=== PATIENT | male | born 1985 | race Caucasian/White ===

== ENCOUNTER 2016-07-28 09:52 | Inpatient (IN) | payer BC ==
[2016-07-28] MEDS ORDERED: Ondansetron INJ* 2 MG/ML VIAL IV ONE (10:32)
[2016-07-28] MEDS ORDERED: Dexamethasone IV* 4 MG/ML 5 ML VIAL (20 MG) IVPB ONE (10:32)
[2016-07-28] MEDS ORDERED: Morphine INJ* 4 MG/ML 1 ML CARPUJECT IV ONE (10:32)
[2016-07-28] MEDS ORDERED: NS 0.9% 1000 ML* 1,000 ML IV ONE ×2 (10:33→14:48)
[2016-07-28] MEDS ORDERED: Ketorolac INJ* 30 MG/ML 1 ML VIAL IV PUSH ONE (10:33)
[2016-07-28] MEDS ORDERED: HYDROmorphone INJ* 1 MG/ML CARPUJECT SYRINGE IV SLOW PU ONE (12:20)
--- NOTE | 2016-07-28 12:20 | ED ---
Back Pain - HPI Summary HPI Summary: Pt here w/ acute back pain. Was splitting wood the other day and noticed his back hurt after striking a piece of frozen wood. He stopped and developed progressive pain and stiffness. Tried percocet and tizanadine he had leftover w/ o relief. Took him a long time to get up to get in here today - has debilitating spasms w/ pain shooting down into Rt buttock and behind knee. Denies numbness, tingling, weakness and no change in bowel/bladder habits. Had an MRI at last visit here in 05/2016 - Rt L5-S1 disc herniation abutting L5 nerve root - History of Current Complaint Chief Complaint: EDBackInjuryPain Stated Complaint: BACK PAIN Time Seen by Provider: 07/28/16 10:27 Hx Obtained From: Patient, Family/Travel Coordinator - female partner Pain Intensity: 10 - Allergies/Home Medications Allergies/Adverse Reactions: Allergies Allergy/AdvReac Type Severity Reaction Status Date / Time Amoxicillin Allergy Diarrhea Verified 05/28/16 11:13 Penicillins [PCN] Allergy Diarrhea Verified 05/28/16 11:13 PMH/Surg Hx/FS Hx/Imm Hx Previously Healthy: Yes Endocrine/Hematology History: Denies: Hx Anticoagulant Therapy, Hx Blood Disorders Cardiovascular History: Denies: Hx Pacemaker/ICD Musculoskeletal History: Reports: Other Musculoskeletal History - 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 Sensory History: Denies: Hx Hearing Aid Psychiatric History: Denies: Hx Panic Disorder - Surgical History Surgery Procedure, Year, and Place: EUA KNEE, left Infectious Disease History: No Infectious Disease History: Denies: Hx Clostridium Difficile, Hx Hepatitis, Hx Human Immunodeficiency Virus (HIV), Hx of Known/Suspected MRSA, Hx Shingles, Hx Tuberculosis, Hx Known/ Suspected VRE, Hx Known/Suspected VRSA, History Other Infectious Disease, Traveled Outside the [place] in Last 30 Days - Family History Known Family History: Positive: Hypertension Negative: Respiratory Disease, Blood Disorder - Social History Occupation: Employed Full-time Lives: With Family Alcohol Use: Rare Hx Substance Use: No Substance Use Type: Reports: None Hx Tobacco Use: No Smoking Status (MU): Never Smoked Tobacco Review of Systems Negative: Fatigue Negative: Chest Pain Negative: Shortness Of Breath Negative: Abdominal Pain, Vomiting, Diarrhea, Nausea Negative: incontinence, urgency Musculoskeletal: Other - SEE HPI Negative: Rash, Bruising Neurological: Other - SEE HPI Negative: Weakness, Paresthesia, Numbness Psychological: Normal All Other Systems Reviewed And Are Negative: Yes Physical Exam Triage Information Reviewed: Yes Vital Signs On Initial Exam: Initial Vitals Temp Pulse Resp BP Pulse Ox 98.6 F 70 16 121/74 99 07/28/16 10:01 07/28/16 10:01 07/28/16 10:01 07/28/16 10:01 07/28/16 10:01 Vital Signs Reviewed: Yes Appearance: Positive: Well-Appearing, Well-Nourished, Pain Distress Skin: Positive: Warm, Dry - No erythema, no ecchymosis over affected area Head/Face: Positive: Normal Head/Face Inspection Eyes: Positive: Normal, EOMI, Conjunctiva Clear ENT: Positive: Hearing grossly normal, Pharynx normal - mucosa somewhat dry Respiratory/Lung Sounds: Positive: Breath Sounds Present Cardiovascular: Positive: Normal, RRR, Pulses are Symmetrical in both Upper and Lower Extremities Abdomen Description: Positive: Nontender, Soft Musculoskeletal: Positive: Other - Rt side - moving toes, ankles and knee - pain w/ moving hip Neurological: Positive: Sensory/Motor Intact - sensory and motor intact but has pain w/ RLE movement Psychiatric: Positive: Normal - [place] Coma Scale Coma Scale Total: 15 Diagnostics - Vital Signs Vital Signs Temp Pulse Resp BP Pulse Ox 07/28/16 12:00 73 122/66 97 07/28/16 11:30 71 120/69 98 07/28/16 11:00 90 112/52 99 07/28/16 10:48 16 07/28/16 10:30 69 123/72 99 07/28/16 10:04 75 98 07/28/16 10:02 121/74 07/28/16 10:01 98.6 F 70 16 121/74 99 - Laboratory Result Diagrams: 07/28/16 10:15 07/28/16 10:15 Lab Statement: Any lab studies that have been ordered have been reviewed, and results considered in the medical decision making process. Re-Evaluation - Re-Evaluation First Eval Change: Unchanged - s/p toradol, dexamethasone, morphine Second Eval Change: Improved - briefly s/p dilaudid IV - provided IV diazepam Back Pain Course/Dx - Course Course Of Treatment: Pt admitted for intractable pain as he failed toradol, morphine, steroid and dilaudid - no repeat MRI ordered as pt does not have neurological deficit - simply pain. Spoke w/ Dr. Sharp. - Diagnoses Provider Diagnoses: Herniated nucleus pulposus, L5-S1, right - Provider Notifications Discussed Care of Patient With: Dr. Sharp Discharge - Discharge Plan Condition: Fair Disposition: ADMITTED TO [facility] [place]
[2016-07-28 13:40] LABS: Hematocrit 43 % (42-52); Hemoglobin 14.1 g/dl (14.0-18.0); Mean Corpuscular HGB Conc 33 g/dl (31-36); Mean Corpuscular Hemoglobin 30 pg (27-31); Mean Corpuscular Volume 91 fL (80-94); Mean Platelet Volume 9 um3 (7.4-10.4); Red Cell Distribution Width 14 % (10.5-15); White Blood Count 8.2 10^3/ul (3.5-10.8)
[2016-07-28 13:51] LABS: Albumin 4.4 g/dL (3.2-5.2); BUN/Creatinine Ratio 8.6 (8-20); Calcium 9.1 mg/dL (8.6-10.3); EGFR African American 143.9 (>60); EGFR Non-African American 111.9 (>60); Globulin 3.1 g/dL (2-4); Potassium 3.7 mmol/L (3.5-5.0); Total Bilirubin 0.6 mg/dL (0.2-1.0); Total Protein 7.5 g/dL (6.4-8.9)
[2016-07-28] MEDS ORDERED: Diazepam SYRINGE* 5 MG/ML 2 ML SYRINGE (10 MG total) IV ONE (14:30)
[2016-07-28] MEDS ORDERED: Ondansetron INJ* 2 MG/ML VIAL IV PRN (14:48)
[2016-07-28] MEDS ORDERED: Ketorolac INJ* 30 MG/ML 1 ML VIAL IV PUSH PRN (14:53)
[2016-07-28] MEDS ORDERED: Diazepam TAB(*) 5 MG PO PRN (14:53)
[2016-07-28] MEDS: HYDROmorphone INJ* 2 MG/ML CARPUJECT SYRINGE IV SLOW PU PRN ×2 (15:54→20:15)
[2016-07-28] MEDS: oxyCODONE/Acetamin 5/325 MG* TAB PO PRN (17:29)
[2016-07-28] MEDS ORDERED: Diazepam SYRINGE* 5 MG/ML 2 ML SYRINGE (10 MG total) IV PRN (18:16)
[2016-07-28] MEDS: Dexamethasone TAB* 4 MG PO SCH (21:47)
[2016-07-29] MEDS: oxyCODONE/Acetamin 5/325 MG* TAB PO PRN ×5 (03:45→23:28)
[2016-07-29] MEDS: NS 0.9% 1000 ML* 1,000 ML IV SCH ×2 (03:45→14:14)
[2016-07-29] MEDS: Dexamethasone TAB* 4 MG PO SCH ×2 (08:59→20:44)
[2016-07-29] MEDS: HYDROmorphone INJ* 2 MG/ML CARPUJECT SYRINGE IV SLOW PU PRN ×3 (09:06→20:47)
[2016-07-29] MEDS ORDERED: Omeprazole CAP* 20 MG PO ONE (21:31)
--- NOTE | 2016-07-29 21:31 | PN ---
Subjective Date of Service: 07/29/16 Interval History: . still can't walk secondary to pain. getting IV pain meds and antispasmotics. also on steroids add PPI. stool softener. likely dc tomorrow. Family History: Unchanged from Admission Social History: Unchanged from Admission Past Medical History: Unchanged from Admission Objective Active Medications: . Dexamethasone (Decadron Tab*) 4 mg PO BID [facility] Last Admin: 07/29/16 20:44 Dose: 4 mg Diazepam (Valium Syringe*) 5 mg IV Q6H PRN PRN Reason: back pain / spasm Hydromorphone HCl (Dilaudid Iv*) 2 mg IV SLOW PU Q4H PRN PRN Reason: SEVERE PAIN Last Admin: 07/29/16 20:47 Dose: 2 mg Sodium Chloride (Ns 0.9% 1000 Ml*) 1,000 mls @ 100 mls/hr IV PER RATE [facility] Last Admin: 07/29/16 14:14 Dose: 100 mls/hr Ketorolac Tromethamine (Toradol Inj*) 30 mg IV PUSH Q6H PRN PRN Reason: PAIN Last Admin: 07/28/16 17:29 Dose: 30 mg Ondansetron HCl (Zofran Inj*) 4 mg IV Q4H PRN PRN Reason: NAUSEA/VOMITING Oxycodone/Acetaminophen (Percocet 5/325 Tab*) 2 tab PO Q4H PRN PRN Reason: Pain Last Admin: 07/29/16 18:29 Dose: 2 tab . Vital Signs 07/29/16 07/29/16 07/29/16 15:19 16:01 16:43 Temperature 98.6 F Pulse Rate 83 Respiratory 18 16 18 Rate Blood Pressure 141/69 (mmHg) O2 Sat by Pulse 98 Oximetry 07/29/16 07/29/16 07/29/16 17:43 18:29 19:52 Temperature 98.1 F Pulse Rate 89 Respiratory 18 18 16 Rate Blood Pressure 116/60 (mmHg) O2 Sat by Pulse 97 Oximetry Appearance: ok so long as he is lying still - pain/grimacing with movement. Ears/Nose/Mouth/Throat: NL Teeth, Lips, Gums Neck: NL Appearance and Movements; NL JVP Respiratory: Symmetrical Chest Expansion and Respiratory Effort Cardiovascular: NL Sounds; No Murmurs; No JVD Abdominal: NL Sounds; No Tenderness; No Distention Lymphatic: No Cervical Adenopathy Extremities: No Edema Skin: No Rash or Ulcers Neurological: Alert and Oriented x 3 Lines/Tubes/Other Access: Clean, Dry and Intact Peripheral IV Nutrition: Taking PO's Result Diagrams: 07/28/16 10:15 07/28/16 10:15 Assess/Plan/Problems-Billing . Assessment: 31 yo man with herniated nucleus pulposis - slowly recovering but still unable to ambulate. iV opiates - pain IV benzos - spasm PO steroids - anti-inflammation Add PPI/bowel regimen PT eval Recent MRI noted - no danger signs (i.e. bowel/bladder dysfx, focal weakness , etc.)
[2016-07-29] MEDS ORDERED: Senna TAB PO SCH (22:00)
[2016-07-30] MEDS: NS 0.9% 1000 ML* 1,000 ML IV SCH (00:11)
--- NOTE | 2016-07-30 01:44 | HP ---
CC: Rakesh Subramanian MD HISTORY AND PHYSICAL: DATE OF ADMISSION: 07/29/16 PRIMARY CARE PROVIDER: [facility]. CHIEF COMPLAINT: Back pain/inability to walk secondary to acute pain. HISTORY OF PRESENT ILLNESS: Mr. Montemayor is a 31-year-old generally healthy man who was splitting wood the other day and noticed his back hurt after striking a piece of frozen wood. The patient experienced progressive pain and stiffness. The patient tried Percocet and tizanidine that he had from a recent injury. The patient could not walk at one point and slowly made his way to the hospital. He has debilitated spasms with pain shooting down his right buttock and behind his knee. There is numbness and tingling and weakness but no change in bowel or bladder habits. The patient had an MRI at the last visit here in May, which showed a right L5-S1 disk herniation abutting the L5 nerve root. The patient was treated with acute steroids and opioids and there was some subjective relief but the patient was still not able to walk. The patient has no other significant past medical history and is being admitted for IV pain control, IV antispasmodic therapy, as well as steroid antiinflammation therapy. PAST MEDICAL HISTORY: Previous back pain as described above. MEDICATIONS: No outpatient medications prescribed. ALLERGIES: AMOXICILLIN/PENICILLIN - unknown reaction - patient states it might just be diarrhea. FAMILY HISTORY: Reviewed but noncontributory based on this presentation. 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 He is a nonsmoker. He drinks occasionally. REVIEW OF SYSTEMS: A review of 14 systems was accomplished at the bedside. This was largely negative except for the pertinent positives mentioned above in the HPI and past medical history. All other positives are mentioned in the HPI. PHYSICAL EXAMINATION GENERAL: The patient is a young man who appears his stated age in no apparent distress. Awake, alert, and oriented x3 and answering questions appropriately. If he moves; however, he is very uncomfortable, grimacing and in obvious severe pain. He is bedbound at this point. VITAL SIGNS: On admission, temperature 98.1 degrees Fahrenheit, pulse 75, respirations 16 and regular, blood pressure one teens over 60's, oxygen saturation is high 90's in room air. HEENT: Oropharynx is clear. Mucous membranes are moist. No posterior pharyngeal erythema or exudate. NECK: Supple. No elevated JVD. Midline trachea. There is no carotid bruits. CHEST: Clear anteriorly, posteriorly. No focal rales, rhonchi or wheezing. HEART: Regular rate and rhythm. No murmurs, rubs or gallops. ABDOMEN: Soft and nontender. No organomegaly. NEUROLOGIC: No focal symptomatology. He has pain in his lower lumbar region. There is obvious muscle spasms active during my exam. He has alteration in his posture secondary to muscle spasm. Straight leg lift is positive at 30 degrees for pain down his right leg. PSYCH: Normal affect. No acute anxiety or depression. No lymphadenopathy appreciated. SKIN: Dry and intact. No rashes, lesions, breakdown. ADMISSION DATA: Includes generally normal blood chemistries and hematology studies. His radiology review included the lumbar spine MRI that was done on , which showed the L5-S1 bulging disk abutting the L5 nerve root. The patient's current presentation and pain are consistent with this. IMPRESSION: Mr. Montemayor is a 31-year-old gentleman with an acute low back injury likely secondary to his already-characterized disk disease and herniated nucleus pulposus. The patient is going to be treated aggressively with IV opioids, IV benzodiazepines and oral steroids for pain, spasm, and antiinflammation effects. Add proton pump inhibitor and bowel regimen for prophylaxis. Full code. DVT prophylaxis is SCDs and early ambulation. PT evaluation. TIME SPENT: Total time taken to admit Mr. Montemayor was 75 minutes. Greater than half that time was spent going over the detailed history and physical examination as above. [id number]/[facility] #: [id number] [facility]
[2016-07-30] MEDS: oxyCODONE/Acetamin 5/325 MG* TAB PO PRN ×2 (05:48→10:14)
[2016-07-30] MEDS ORDERED: Omeprazole CAP* 20 MG PO SCH (06:00)
[2016-07-30 07:22] VITALS: BP 113/73
[2016-07-30] MEDS: Dexamethasone TAB* 4 MG PO SCH (08:25)
--- NOTE | 2016-07-30 09:11 | PN ---
Subjective Date of Service: 07/30/16 Interval History: Pt is feeling better slowly. He states he was able to be up an ambulate a little this AM. He thinks the steroids have helped the most. He thinks he will be able to manage at home. Objective Active Medications: Dexamethasone (Decadron Tab*) 4 mg PO BID [facility] Last Admin: 07/30/16 08:25 Dose: 4 mg Diazepam (Valium Syringe*) 5 mg IV Q6H PRN PRN Reason: back pain / spasm Last Admin: 07/30/16 08:32 Dose: 5 mg Hydromorphone HCl (Dilaudid Iv*) 2 mg IV SLOW PU Q4H PRN PRN Reason: SEVERE PAIN Last Admin: 07/29/16 20:47 Dose: 2 mg Sodium Chloride (Ns 0.9% 1000 Ml*) 1,000 mls @ 100 mls/hr IV PER RATE [facility] Last Admin: 07/30/16 00:11 Dose: 100 mls/hr Ketorolac Tromethamine (Toradol Inj*) 30 mg IV PUSH Q6H PRN PRN Reason: PAIN Last Admin: 07/28/16 17:29 Dose: 30 mg Omeprazole (Prilosec Cap*) 20 mg PO DAILY@0600 [facility] Last Admin: 07/30/16 05:48 Dose: 20 mg Ondansetron HCl (Zofran Inj*) 4 mg IV Q4H PRN PRN Reason: NAUSEA/VOMITING Oxycodone/Acetaminophen (Percocet 5/325 Tab*) 2 tab PO Q4H PRN PRN Reason: Pain Last Admin: 07/30/16 05:48 Dose: 2 tab Senna (Senokot Tab*) 1 tab PO BEDTIME [facility] Last Admin: 07/29/16 21:59 Dose: 1 tab Vital Signs 07/29/16 07/29/16 07/29/16 15:19 16:01 16:43 Temperature 98.6 F Pulse Rate 83 Respiratory 18 16 18 Rate Blood Pressure 141/69 (mmHg) O2 Sat by Pulse 98 Oximetry 07/29/16 07/29/16 07/29/16 17:43 18:29 19:52 Temperature 98.1 F Pulse Rate 89 Respiratory 18 18 16 Rate Blood Pressure 116/60 (mmHg) O2 Sat by Pulse 97 Oximetry 07/29/16 07/29/1607/29/17 20:00 20:29 20:47 Temperature Pulse Rate Respiratory 17 16 16 Rate Blood Pressure (mmHg) O2 Sat by Pulse Oximetry 07/29/16 07/29/16 07/29/16 21:47 23:22 23:28 Temperature 100.2 F Pulse Rate 75 Respiratory 16 20 16 Rate Blood Pressure 115/53 (mmHg) O2 Sat by Pulse 96 Oximetry 07/30/16 07/30/16 07/30/16 01:28 03:30 05:48 Temperature 98.4 F Pulse Rate 76 Respiratory 16 20 17 Rate Blood Pressure 126/52 (mmHg) O2 Sat by Pulse 97 Oximetry 07/30/16 07/30/16 07/30/16 07:12 07:48 08:32 Temperature 99.0 F Pulse Rate 86 Respiratory 16 18 18 Rate Blood Pressure 113/73 (mmHg) O2 Sat by Pulse 98 Oximetry Oxygen Devices in Use Now: None Appearance: Young male sitting on the edge of the bed eating breakfast, NAD Eyes: No Scleral Icterus Ears/Nose/Mouth/Throat: Mucous Membranes Moist Respiratory: Symmetrical Chest Expansion and Respiratory Effort, Clear to Auscultation Cardiovascular: NL Sounds; No Murmurs; No JVD, RRR, No Edema Abdominal: NL Sounds; No Tenderness; No Distention Extremities: No Clubbing, Cyanosis Skin: No Rash or Ulcers, No Nodules or Sclerosis Neurological: Alert and Oriented x 3 Result Diagrams: 07/28/16 10:15 07/28/16 10:15 Assess/Plan/Problems-Billing Mr Montemayor is a 31 yo M who has no significant PMHx who presented to the ER with c /o severe back pain and difficulty with ambulation. - Patient Problems (1) Back pain Current Visit: Yes Status: Acute Code(s): M54.9 - DORSALGIA, UNSPECIFIED SNOMED Code(s): 326059719 Comment: Likely related to previously identified herniated disc exacerbated by cutting wood prior to admission. His pain is improving and he is now able to ambulate a little. He thinks he can manage at home with antispasmodics, pain medications and the steroid taper. 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 (2) DVT prophylaxis Current Visit: Yes Status: Acute Code(s): OPA2965 - SNOMED Code(s): 199826415 Comment: ambulation (3) Full code status Current Visit: Yes Status: Acute Code(s): Z78.9 - OTHER SPECIFIED HEALTH STATUS SNOMED Code(s): 833749241 Status and Disposition: d/c home
--- NOTE | 2016-07-31 15:00 | DS ---
DISCHARGE SUMMARY: DATE OF ADMISSION: 07/29/16 DATE OF DISCHARGE: 07/30/16 PRIMARY CARE PROVIDER: Dr. Subramanian. PRINCIPAL DIAGNOSIS: Intractable back pain secondary to herniated L5-S1 disk. SECONDARY DIAGNOSIS: None. MEDICATIONS: 1. Naproxen 220 mg p.o. q.6 hours p.r.n. pain. 2. Percocet 5/325 one to two tabs p.o. q.4 hours p.r.n. pain. 3. Valium 2 mg p.o. t.i.d. p.r.n. spasm. 4. Decadron 4 mg p.o. b.i.d. x3 more doses and 4 mg p.o. daily x3 doses. HOSPITAL COURSE: Mr. Montemayor is a 31-year-old male who was evaluated for back pain in May and was found to have an L5-S1 disk herniation abutting the L5 nerve root. The patient was out chopping wood a few days prior to admission and noted that his back hurt after striking a piece of frozen wood. The patient experienced progressive pain and stiffness and ultimately was unable to walk without severe pain. The patient presented to the emergency room for evaluation. He was admitted ultimately for pain control. By the morning of 12/09, he had improved to the point where he was able to ambulate short distances. His pain was under much better control once the steroids kicked in. The patient feels that he will be able to manage at home. He will be discharged home to complete a steroid taper as well as have Valium and Percocet available for pain and spasm. FOLLOWUP CONCERNS: The patient is being discharged home today, 07/30/16. He is to follow up with Dr. Subramanian in the next 4 to 7 days. ACTIVITY LEVEL: As tolerated. DIET: Regular. CONDITION ON DISCHARGE: Stable. TIME SPENT: Thirty-five minutes was spent discharging this patient. CC: Dr. Subramanian * [id number]/[facility] #: [id number] [facility]
== END 2016-07-30 11:05 | disposition home or self-care (01) | DRG 347 ==
LOC: ED 09:52 → SSU 14:48 → OBSVTOIN 07-29 15:00
PROVIDERS: ADMIT Internal Medicine; ATTEND Hospitalist
DX: M51.27 Other intervertebral disc displacement, lumbosacral region (principal); Z88.0 Allergy status to penicillin; Z82.49 Family history of ischemic heart disease and other diseases of the circulatory system
CPT/HCPCS: 36415; 80053; 85025; 96365; 96374; 96376; 99283; A9270-GY; G0378; J1100; J1170; J1885; J2270; J2405; J3360; J8540

== ENCOUNTER 2018-12-14 15:59 | Emergency (ER) | payer BC ==
[2018-12-14] MEDS ORDERED: NS 0.9% 1000 ML** 1,000 ML IV ONE ×2 (19:23→20:17)
[2018-12-14] MEDS ORDERED: Ondansetron INJ* 2 MG/ML VIAL IV ONE (19:23)
[2018-12-14] MEDS ORDERED: Morphine 4 MG/ML VIAL (1 ml) 4 MG/ML VIAL IV ONE ×2 (19:31→21:29)
--- NOTE | 2018-12-14 19:32 | ED ---
Abdominal Pain/Male - HPI Summary HPI Summary: The patient is a 33 y/o M presenting to [facility] with a chief complaint of sudden onset left epigastric abdominal pain starting two days ago with worsening since onset. He states that the pain became a cramping pain yesterday with current rating of 8/10 in severity, and then there was associated nausea, vomiting, and diarrhea since. He additionally c/o weakness, lightheadedness, decreased appetite, and abdominal bloating. He denies blood or mucous in stool. There are no aggravating or alleviating factors. He went on a trip outside of the country to the [facility] at the end of October, but he wasn't experiencing these symptoms then. Hx of rotator cuff tear, knee surgery. FHx of DM. Nonsmoker, occasional EtOH, no substance use. - History of Current Complaint Chief Complaint: EDNauseaVomitDiarrh Stated Complaint: DIARRHEA/VOMING/ABD PAIN PER PT Time Seen by Provider: 12/14/18 19:22 Hx Obtained From: Patient Onset/Duration: Sudden Onset, Lasting Days - two, Still Present Timing: Lasting Days Severity Initially: Moderate Severity Currently: Severe Pain Intensity: 8 Pain Scale Used: 0-10 Numeric Location: Epigastric - left Radiates: No Character: Cramping Aggravating Factor(s): Food Alleviating Factor(s): Nothing Associated Signs And Symptoms: Positive: Decreased Appetite, Nausea, Vomiting, Diarrhea, Other - POSITIVE: weakness, lightheadedness, abdominal bloating; NEGATIVE: blood or mucous in stool - Allergies/Home Medications Allergies/Adverse Reactions: Allergies Allergy/AdvReac Type Severity Reaction Status Date / Time amoxicillin Allergy Diarrhea Verified 12/14/18 19:26 Penicillins Allergy Dizziness Verified 12/14/18 19:26 PMH/Surg Hx/FS Hx/Imm Hx Endocrine/Hematology History: Denies: Hx Anticoagulant Therapy, Hx Blood Disorders, Hx Diabetes, Hx Thyroid Disease Cardiovascular History: Denies: Hx Hypercholesterolemia, Hx Pacemaker/ICD Musculoskeletal History: Reports: Hx Arthritis - knees, Other Musculoskeletal History - 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 Sensory History: Reports: Hx Contacts or Glasses Denies: Hx Hearing Aid Opthamlomology History: Reports: Hx Contacts or Glasses Psychiatric History: Denies: Hx Panic Disorder - Surgical History Surgery Procedure, Year, and Place: EUA KNEE, left Infectious Disease History: No Infectious Disease History: Denies: Hx Clostridium Difficile, Hx Hepatitis, Hx Human Immunodeficiency Virus (HIV), Hx of Known/Suspected MRSA, Hx Shingles, Hx Tuberculosis, Hx Known/ Suspected VRE, Hx Known/Suspected VRSA, History Other Infectious Disease, Traveled Outside the [place] in Last 30 Days - Family History Known Family History: Positive: Hypertension Negative: Respiratory Disease, Blood Disorder - Social History Alcohol Use: Rare Hx Substance Use: No Substance Use Type: Reports: None Hx Tobacco Use: No Smoking Status (MU): Never Smoked Tobacco Do You Chew or Dip Tobacco: No Have You Chewed or Dipped Tobacco in the LAST YEAR: No Have You Smoked in the Last Year: No Review of Systems Positive: Abdominal Pain - epigastric, left-sided, Vomiting, Diarrhea, Nausea, Other - POSITIVE: abdominal bloating, decreased appetite; NEGATIVE: blood or mucous in stool Neurological: Other - lightheadedness Positive: Weakness - general body All Other Systems Reviewed And Are Negative: Yes Physical Exam - Summary Physical Exam Summary: VITAL SIGNS: Reviewed. GENERAL: Patient is a well-developed and nourished male who is lying comfortable in the stretcher. Patient is not in any acute respiratory distress. HEAD AND FACE: Normocephalic and atraumatic. EYES: PERRLA, EOMI x 2, No injected conjunctiva. EARS: Hearing grossly intact. Ear canals and tympanic membranes are WNL. MOUTH: Oropharynx within normal limits. NECK: Supple, trachea is midline, no adenopathy, no JVD. CHEST: Symmetric, no tenderness at palpation LUNGS: Clear to auscultation bilaterally. No wheezing or crackles. CVS: RRR, S1 and S2 present, no murmurs or gallops appreciated. ABDOMEN: Soft, diffuse abdominal pain increased in the left and epigastric area. No signs of distention. Positive bowel sounds. No rebound no guarding, and no masses palpated. No abdominal bruit or pulsations. EXTREMITIES: FROM in all major joints, no edema, no cyanosis or clubbing. NEURO: Alert and oriented x 3. No acute neurological deficits. Speech is normal. SKIN: Dry and warm Triage Information Reviewed: Yes Vital Signs On Initial Exam: Initial Vitals Temp Pulse Resp BP Pulse Ox 96.7 F 111 17 130/104 100 12/14/18 16:02 12/14/18 16:02 12/14/18 16:02 12/14/18 16:02 12/14/18 16:02 Vital Signs Reviewed: Yes Diagnostics - Vital Signs Vital Signs Temp Pulse Resp BP Pulse Ox 12/14/18 19:20 98.2 F 73 16 136/75 97 12/14/18 18:07 99.6 F 114 18 128/84 100 12/14/18 16:02 96.7 F 111 17 130/104 100 - Laboratory Result Diagrams: 12/14/18 19:59 12/14/18 19:59 Lab Statement: Any lab studies that have been ordered have been reviewed, and results considered in the medical decision making process. Abdominal Pain Male Course/Dx - Course Assessment/Plan: The patient is a 33 y/o M presenting to [facility] with a chief complaint of sudden onset left epigastric abdominal pain starting two days ago with worsening since onset. He states that the pain became a cramping pain yesterday with current rating of 8/10 in severity, and then there was associated nausea, vomiting, and diarrhea since. He additionally c/o weakness, lightheadedness, decreased appetite, and abdominal bloating. He denies blood or mucous in stool. There are no aggravating or alleviating factors. He went on a trip outside of the country to the [facility] at the end of October, but he wasn't experiencing these symptoms then. Hx of rotator cuff tear, knee surgery. FHx of DM. Nonsmoker, occasional EtOH, no substance use. In the physical exam the patient has diffuse abdominal pain, therefore I ordered blood work, IV fluids, Zofran, morphine for the pain, and abdominal pelvic CT. Blood work without any significant abnormality except for increased H&H of 18.103, DT possibly secondary to dehydration. Chloride is 99, creatinine is 1.22, glucose 122, CRP is 96.0. Urinalysis shows 2+ protein, 2+ ketones, and 2+ blood. In the ED course , the patient was given IV fluids approximately 3L of IV fluids. Patient was given Zofran for the nausea and vomiting and Morphine for the abdominal pain. Patient is drinking PO contrast for abdominal and pelvic CT to r/o a acute colitis or any intra-abdominal pathology. Patient was given another dose of Morphine for the pain. C. Diff is negative. Patient will be signed out to Dr. Raphael to f/u the abdominal and pelvic CT at shift change. - Diagnoses Provider Diagnoses: Gastroenteritis Discharge - Sign-Out/Discharge Documenting (check all that apply): Sign-Out Patient Signing out patient TO: Deandre Raphael - Patient is a sign-out from Dr. Ky MD, to Dr. Donavon MD, at change of shift at [address] Abd/Pel and disposition. Patient Received Moderate/Deep Sedation with Procedure: No - Discharge Plan Condition: Good Disposition: HOME Prescriptions: Dicyclomine CAP* [Bentyl CAP*] 10 mg PO TID PRN #12 cap MDD 4 PRN Reason: Pain - Abdominal Ondansetron ODT TAB* [Zofran 4 MG Odt TAB*] 8 mg PO Q6H PRN #12 tab.odt PRN Reason: Nausea Patient Education Materials: Gastroenteritis (ED) Forms: *Work Release Referrals: Nicholas Harris III, [facility] [Primary Care Provider] - 3 Days (if not improving) - Attestation Statements Document Initiated by Stanleye: Yes Documenting Scribe: Mary Santiago Provider For Whom Phi is Documenting (Include Credential): Dr. French Mcpherson MD Scribe Attestation: Mary Keys, scribed for Dr. French Mcpherson MD on 12/15/18 at 2133. Scribe Documentation Reviewed: Yes Provider Attestation: The documentation as recorded by the ramonibeMary accurately reflects the service I personally performed and the decisions made by me, Dr. French Mcpherson MD Status of Scribe Document: Viewed
[2018-12-14 20:12] LABS: ABS Lymphocytes 0.7 10^3/ul (1.0-4.8); ABS Monocytes 0.5 10^3/ul (0-0.8); ABS Neutrophils 6.8 10^3/ul (1.5-7.7); Hematocrit 53 % (42-52); Hemoglobin 18.1 g/dL (14.0-18.0); Lymphocyte % 8.9 %; Mean Corpuscular HGB Conc 34 g/dL (31-36); Mean Corpuscular Hemoglobin 30 pg (27-31); Mean Corpuscular Volume 89 fL (80-94); Mean Platelet Volume 8.7 fL (7.4-10.4); Platelet Count 224 10^3/uL (150-450); Red Blood Count 5.99 10^6 /uL (4.18-5.48); Red Cell Distribution Width 14 % (10.5-15); White Blood Count 8.1 10^3/uL (3.5-10.8)
[2018-12-14 20:18] LABS: Urine Appearance Cloudy; Urine Bacteria Absent (Absent); Urine Bilirubin Negative (Negative); Urine Blood 2+ (Negative); Urine Color Amber; Urine Glucose Negative (Negative); Urine Ketones 2+ (Negative); Urine Nitrite Negative (Negative); Urine Protein 2+(100 mg/dL) (Negative); Urine Red Blood Cell 1+(3-5/hpf) (Absent); Urine Specific Gravity 1.031 (1.010-1.030); Urine Urobilinogen Negative (Negative); Urine White Blood Cell Trace(0-5/hpf) (Absent)
[2018-12-14 20:24] LABS: ALT 24 U/L (7-52); AST 31 U/L (13-39); Albumin/Globulin Ratio 1.5 (1-3); Alkaline Phosphatase 68 U/L (34-104); Anion Gap 9 mmol/L (2-11); BUN/Creatinine Ratio 7.4 (8-20); Blood Urea Nitrogen 9 mg/dL (6-24); C Reactive Protein 96.07 mg/L (<8.01); CO2 Carbon Dioxide 28 mmol/L (22-32); Calcium 9.8 mg/dL (8.6-10.3); Chloride 99 mmol/L (101-111); Creatine Kinase 117 U/L (10-223); EGFR African American 83.3 (>60); EGFR Non-African American 68.8 (>60); Globulin 3.4 g/dL (2-4); Glucose 122 mg/dL (70-100); Magnesium 1.9 mg/dL (1.9-2.7); Sodium 136 mmol/L (135-145); Total Protein 8.4 g/dL (6.4-8.9)
[2018-12-14] MEDS ORDERED: Iohexol 300* (CONTRAST) 10 ML SDV IV ONE (20:29)
--- NOTE | 2018-12-14 22:12 | ED ---
Progress - Progress Note Progress Note: Patient is received as a sign out from Dr. Mcpherson at 2200 12/14/[address] ABD/PEL results. CT ABD/PEL IMPRESSION: No acute CT pathology. THIS REPORT WAS REVIEWED BY DR. GRANGER. Results of CT discussed with patient, he will be discharged to home. He is agreeable with this. - EKG/XRAY/CT CT: SEE ABOVE Re-Evaluation - Re-Evaluation First Eval Re-Evaluation Time: 00:31 Comment: Results of CT discussed with patient, he will be discharged to home. He is agreeable with this. Course/Dx - Course Course Of Treatment: Patient is received as a sign out from Dr. Mcpherson at [address] ABD/PEL results. CT ABD/PEL IMPRESSION: No acute CT pathology. THIS REPORT WAS REVIEWED BY DR. GRANGER. Results of CT discussed with patient, he will be discharged to home. He is agreeable with this. - Diagnoses Provider Diagnoses: Gastroenteritis Discharge - Sign-Out/Discharge Documenting (check all that apply): Patient Departure - discharge, Receiving Sign-Out Receiving patient FROM: French Mcpherson Patient Received Moderate/Deep Sedation with Procedure: No - Discharge Plan Condition: Good Disposition: HOME Prescriptions: Dicyclomine CAP* [Bentyl CAP*] 10 mg PO TID PRN #12 cap MDD 4 PRN Reason: Pain - Abdominal Ondansetron ODT TAB* [Zofran 4 MG Odt TAB*] 8 mg PO Q6H PRN #12 tab.odt PRN Reason: Nausea Patient Education Materials: Gastroenteritis (ED) Forms: *Work Release Referrals: Nicholas Harris III, HAND WORKER [Primary Care Provider] - 3 Days (if not improving) - Billing Disposition and Condition Condition: GOOD Disposition: Home - Attestation Statements Document Initiated by Scribe: Yes Documenting Scribe: IVON FLOWERS Provider For Whom Phi is Documenting (Include Credential): JANNY GRANGER MD Scribe Attestation: IVON Keys, ramonibed for JANNY GRANGER MD on 12/15/18 at 0639. Scribe Documentation Reviewed: Yes Provider Attestation: The documentation as recorded by the IVON moore accurately reflects the service I personally performed and the decisions made by JANNY locke MD Status of Scribe Document: Viewed
[2018-12-14 23:47] VITALS: BP 131/81
[2018-12-15] MEDS ORDERED: Ondansetron ODT TAB* 4 MG SL ONE (00:20)
[2018-12-15] MEDS ORDERED: Dicyclomine CAP* 10 MG PO ONE (00:20)
== END 2018-12-15 00:42 | disposition home or self-care (01) ==
LOC: ED 15:59
DX: K52.9 Noninfective gastroenteritis and colitis, unspecified (principal); Z88.0 Allergy status to penicillin
CPT/HCPCS: 36415; 74177; 80053; 81003; 81015; 82550; 83605; 83630; 83690; 83735; 85025; 86140; 87045; 87046; 87077; 87086; 87493; 87899; 96361; 96374; 96375; 99283; A9270-GY; J2270; J2405; Q9967